=== PATIENT | female | born 1960 | race Caucasian/White ===

== ENCOUNTER 2023-06-17 18:19 | Emergency (ER) | payer OTHER ==
[~2023-06-17] VITALS: Ht 157.5 cm; Wt 63.5 kg
[2023-06-17] MEDS ORDERED: ATACAND4 MG PO (18:32)
== END 2023-06-17 21:20 | disposition home or self-care (01) ==
LOC: ER 18:19
DX: S00.03XA Contusion of scalp, initial encounter (principal); W19.XXXA Unspecified fall, initial encounter; Y93.89 Activity, other specified; Y92.89 Other specified places as the place of occurrence of the external cause; Y99.9 Unspecified external cause status